=== PATIENT | female | born 1960 | race African-American/Black ===

== ENCOUNTER 2021-10-11 19:30 | Emergency (ER) | payer MEDICAID ==
[~2021-10-11] VITALS: Ht 167.6 cm; Wt 59.0 kg
[2021-10-11 19:39] VITALS: BP 142/88
[2021-10-11] MEDS ORDERED: ACETAMINOPHEN 325MG TABLET PO ONE (21:00)
[2021-10-11] MEDS ORDERED: TOPUD MT (21:42)
== END 2021-10-11 22:22 | disposition home or self-care (01) ==
LOC: ER 19:30
DX: S80.02XA Contusion of left knee, initial encounter (principal); I10 Essential (primary) hypertension; X58.XXXA Exposure to other specified factors, initial encounter; Y93.89 Activity, other specified; Y92.89 Other specified places as the place of occurrence of the external cause; Y99.8 Other external cause status
CPT/HCPCS: 73560; 99283

== ENCOUNTER 2022-11-23 19:25 | Emergency (ER) | payer MEDICAID ==
[~2022-11-23] VITALS: Ht 162.6 cm; Wt 54.5 kg
[~2022-11-23 19:25] MED LIST: TOPUD MT
[2022-11-23 20:45] VITALS: BP 170/99
[2022-11-23] MEDS ORDERED: KETOROLAC 60MG/2ML VIAL IM ONE (20:45)
[2022-11-23] MEDS ORDERED: LORAZEPAM 1MG TABLET PO ONE (20:45)
[2022-11-23] MEDS ORDERED: CYCL10TA21 MT (22:11)
== END 2022-11-23 22:30 | disposition home or self-care (01) ==
LOC: ER 19:25
DX: M54.9 Dorsalgia, unspecified (principal); I10 Essential (primary) hypertension; Z98.890 Other specified postprocedural states
CPT/HCPCS: 96372; 99283; J1885